=== PATIENT | female | born 1995 | race Caucasian/White ===

== ENCOUNTER 2016-08-06 22:46 | Emergency (ER) | payer OTHER ==
[~2016-08-06] VITALS: Ht 170.2 cm; Wt 123.8 kg
[2016-08-06 22:47] VITALS: TEMP 37.1; Ht 170.2 cm; Wt 123.8 kg
[2016-08-06] MEDS ORDERED: ETONMIS VAGRING (23:25)
[2016-08-06] MEDS ORDERED: AMX875 PO (23:26)
[2016-08-06] MEDS ORDERED: IBUP-1050 PO (23:26)
[2016-08-06] MEDS ORDERED: ACET-1256 PO (23:26)
[2016-08-06] MEDS ORDERED: KETOROLAC TROMETHAMINE 30 MG/ML VIAL IV STA (23:40)
[2016-08-06] MEDS ORDERED: SODIUM CHLORIDE 0.9% 1000ML 1,000 ML IV STA ×2 (23:41)
[2016-08-06] MEDS ORDERED: DEXAMETHASONE SOD INJ 10 MG/ML VIAL IV ONE (23:45)
--- NOTE | 2016-08-06 23:56 | EMERGENCY ROOM VISIT NOTE ---
History Report prepared by Jitendra: Alexus Disla Under the Supervision of: Dr. Fatemeh Hassan D.O. First contact with patient: 23:06 Chief Complaint: SORETHROAT Stated Complaint: SWOLLEN THROAT, WHITE SPOTS, CAN'T SWALLOW History of Present Illness The patient is a 21 year old female who presents to the Emergency Room with complaints of a worsening sore throat for the past 2 days. Yesterday she developed pain down her neck and white spots in the back of her throat. She went to [place] this morning. She had a negative Strep A test and a negative mono test. She was prescribed amoxicillin. The patient took one dose of the antibiotic at 10am today. She states that her symptoms started worsening this afternoon. She is now unable to swallow any liquids or her own secretions and she is spitting them into a bucket. She feels thirsty, but has been unable to drink anything since this morning. She reports tenderness all the way down the front of her neck and pain into her ears. The patient rates her pain as a 9/10 in severity. She denies cough and any sick contacts. Source of History: patient Onset: 2 days ago Position: throat Symptom Intensity: 9/10 Quality: other (sore) Timing: worsening Modifying Factors (Worsening): drinking, other (swallowing) Associated Symptoms: + neck pain, No cough Review of Systems See HPI for pertinent positives & negatives. A total of 10 systems reviewed and were otherwise negative. Past Medical & Surgical Medical Problems: (1) No significant past medical history Family History Diabetes mellitus Hypertension Social History Smoking Status: Never Smoker Alcohol Use: occasionally Marital Status: single Housing Status: lives with roommate Occupation Status: [employer] student Current/Historical Medications Scheduled Amoxicillin (Amoxicillin), 875 MG PO BID Azithromycin (Zithromax), 500 MG PO DAILY Etonogestrel/Ethinyl Estradiol (Nuvaring), 1 EA VAGRING MONTHLY Scheduled PRN Acetaminophen (Tylenol), 1,000 MG PO Q4 PRN for Pain or Fever Ibuprofen (Advil), 400-600 MG PO Q6H PRN for Pain or Fever Allergies Coded Allergies: No Known Allergies (Unverified , 08/06/16) Physical Exam Vital Signs Date Time Temp Pulse Resp B/P Pulse Ox O2 Delivery O2 Flow Rate FiO2 08/07/16 04:59 71 16 117/64 99 08/07/16 04:57 81 16 120/67 99 Room Air 08/07/16 01:05 99 Room Air 08/07/16 00:45 84 16 117/67 98 Room Air 08/06/16 22:52 98 Room Air 08/06/16 22:47 37.1 118 18 172/106 98 Room Air Physical Exam HEENT: Head - normocephalic and atraumatic Pupils are equal, round, and reactive to light. Extraocular eye muscles are intact, and sclera are anicteric. TMs normal bilaterally. Nose - moist nasal mucosa without discharge. Mouth - moist buccal mucosa. Oropharynx is nonerythematous. There is tonsillar exudate, but no erythema or edema noted. Neck: Supple; no JVD, nuchal rigidity, cervical lymphadenopathy. Heart: Regular rate and rhythm. There is a normal S1 and S2 with no murmurs, clicks, or gallops appreciated. Lungs: Clear to auscultation bilaterally with no wheezes, rales, or rhonchi. Abdomen: Soft, completely nontender, nondistended, with good bowel sounds. There are no palpable pulsatile masses or hepatosplenomegaly. There is no guarding, rigidity, or rebound noted. Extremities: No evidence of cyanosis, clubbing, or edema. There are easily palpable peripheral pulses. Skin: warm and dry with good turgor and no rashes. Medical Decision & Procedures ER Provider Diagnostic Interpretation: Chest x-ray as interpreted by myself reveals no pulmonary infiltrates or consolidations. Radiology results as stated below per my review and the radiologist's interpretation: CT NECK: Driver tonsil enlargement and oropharyngeal and hypopharyngeal mucosal edema, greater towards the left, compatible with tonsillitis and pharyngitis. No evidence of retropharyngeal or peritonsillar abscess. Enlarged level II lymph nodes, measuring up to 1.4 cm in short axis on the right. Air-fluid level in right maxillary sinus. Radiologist: Jose A Hernandez MD Laboratory Results 08/07/16 00:05 Red Blood Count 4.37, Mean Corpuscular Volume 83.8, Mean Corpuscular Hemoglobin 28.8, Mean Corpuscular Hemoglobin Concent 34.4, Mean Platelet Volume 9.9, Neutrophils (%) (Auto) 89.7, Lymphocytes (%) (Auto) 3.7, Monocytes (%) (Auto) 6.2, Eosinophils (%) (Auto) 0.0, Basophils (%) (Auto) 0.0, Neutrophils # (Auto) 24.51, Lymphocytes # (Auto) 1.00, Monocytes # (Auto) 1.68, Eosinophils # (Auto) 0.00, Basophils # (Auto) 0.01 08/07/16 00:05 Test 08/07/16 00:05 08/07/16 01:14 08/07/16 01:30 White Blood Count 27.31 K/uL (4.8-10.8) Red Blood Count 4.37 M/uL (4.2-5.4) Hemoglobin 12.6 g/dL (12.0-16.0) Hematocrit 36.6 % (37-47) Mean Corpuscular Volume 83.8 fL (80-100) Mean Corpuscular Hemoglobin 28.8 pg (25-34) Mean Corpuscular Hemoglobin Concent 34.4 g/dl (32-36) Platelet Count 332 K/uL (130-400) Mean Platelet Volume 9.9 fL (7.4-10.4) Neutrophils (%) (Auto) 89.7 % Lymphocytes (%) (Auto) 3.7 % Monocytes (%) (Auto) 6.2 % Eosinophils (%) (Auto) 0.0 % Basophils (%) (Auto) 0.0 % Neutrophils # (Auto) 24.51 K/uL (1.4-6.5) Lymphocytes # (Auto) 1.00 K/uL (1.2-3.4) Monocytes # (Auto) 1.68 K/uL (0.11-0.59) Eosinophils # (Auto) 0.00 K/uL (0-0.5) Basophils # (Auto) 0.01 K/uL (0-0.2) RDW Standard Deviation 42.2 fL (36.4-46.3) RDW Coefficient of Variation 13.9 % (11.5-14.5) Immature Granulocyte % (Auto) 0.4 % Immature Granulocyte # (Auto) 0.11 K/uL (0.00-0.02) Hypersegmented Polys OCCASIONAL Anion Gap 9.0 mmol/L (3-11) Est Creatinine Clear Calc Drug Dose 120.5 ml/min Estimated GFR () 92.6 Estimated GFR (Non- 79.9 BUN/Creatinine Ratio 8.5 (10-20) Calcium Level 8.9 mg/dl (8.5-10.1) Monoscreen NEG (NEG) Bedside Lactic Acid Venous 0.91 mmol/L (0.90-1.70) Urine Color ORANGE Urine Appearance TURBID (CLEAR) Urine pH 5.0 (4.5-7.5) Urine Specific Cornish 1.039 (1.000-1.030) Urine Protein 2+ (NEG) Urine Glucose (UA) TRACE (NEG) Urine Ketones 1+ (NEG) Urine Occult Blood NEG (NEG) Urine Nitrite POS (NEG) Urine Bilirubin NEG (NEG) Urine Urobilinogen NEG (NEG) Urine Leukocyte Esterase SMALL (NEG) Urine WBC (Auto) >30 /hpf (0-5) Urine RBC (Auto) 0-4 /hpf (0-4) Urine Hyaline Casts (Auto) 0 /lpf (0-5) Urine Epithelial Cells (Auto) >30 /lpf (0-5) Urine Bacteria (Auto) 1+ (NEG) Urine Crystals AMORPHOUS SEDIMENT (NONE Urine Pathogenic Casts /lpf (0) Urine Yeast (Auto) (NONE PRSENT) Laboratory results per my review. Medications Administered Medications (Trade) Dose Ordered Sig/Ezra Route Start Time Stop Time Status Last Admin Dose Admin Ketorolac Tromethamine (Toradol Inj) 30 mg NOW STAT IV 08/06/16 23:40 08/06/16 23:42 DC 08/07/16 00:26 30 MG Dexamethasone Sodium Phosphate 10 mg 10 mg NOW ONCE IV 08/06/16 23:45 08/06/16 23:46 DC 08/07/16 00:26 10 MG Sodium Chloride 1,000 ml @ 999 mls/hr Q1H1M STAT IV 08/06/16 23:41 08/07/16 00:41 DC 08/07/16 00:25 999 MLS/HR Sodium Chloride (Nss 1000ml) 1,000 ml @ 250 mls/hr Q4H STAT IV 08/06/16 23:41 08/07/16 03:40 DC 08/07/16 00:26 250 MLS/HR Azithromycin (Zithromax Tab) 500 mg NOW STAT PO 08/07/16 04:33 08/07/16 04:35 DC 08/07/16 04:33 500 MG Procedure Medications Administered: Toradol 30 mg IV NSS 1000 ml @ 250 mls/hr IV NSS 1000 ml @ 999 mls/hr IV Decadron 10 mg IV Azithromycin 500 mg PO ED Course 2330: Past medical records reviewed. The patient was evaluated in room B9. A complete history and physical exam was performed. 2340: Toradol 30 mg IV 2341: NSS 1000 ml @ 250 mls/hr IV, NSS 1000 ml @ 999 mls/hr IV 2345: Decadron 10 mg IV 0044: I reassessed the patient at this time. She had just recently gotten her medications and has not yet had any improvement of her symptoms. The patient had a significant leukocytosis and a full septic protocol was performed. Chest x-ray was obtained and was unremarkable. 0100: I updated the patient and her mother on the results and treatment plan. The patient will go for CT scan of the soft tissues of the neck to rule out a retropharyngeal abscess. 0306: The patient is doing well and resting more comfortably. 0401: I reassessed the patient at this time. She is feeling better and resting comfortably. I discussed the results and treatment plan with the patient. I answered all pertaining questions that she had. She expressed understanding and verbalized agreement. The patient will be discharged home. 0433: Azithromycin 500 mg PO Medical Decision The patient is a 21 year old female who presents to the ED with a worsening sore throat. Differential diagnosis includes strep, mono, exudative tonsillitis , URI, peritonsillar abscess. Laboratory Interpretations: Lactic acid 0.9 White count 27.3 Stable H&H Potassium 3.3 Normal renal function Glucose 100 [place] is negative. This is a 21-year-old female patient with a worsening sore throat and difficulty swallowing. She presents to the emergency department and has a white blood cell count greater than 27,000. There is no evidence of peritonsillar abscess. Strep testing was negative. [place] testing was negative. CT scan of the neck revealed no obvious retropharyngeal abscess or peritonsillar abscess. There was evidence of tonsillar edema consistent with tonsillitis. I started the patient on Zithromax. She feels much better after receiving IV Toradol and steroids. She was able to drink clear liquids without difficulty. She was told to return to the emergency department should worsening symptoms. Otherwise she can follow-up with student health services. Impression Primary Impression: Exudative tonsillitis Scribe Attestation The scribe's documentation has been prepared under my direction and personally reviewed by me in its entirety. I confirm that the note above accurately reflects all work, treatment, procedures, and medical decision making performed by me. Departure Information Dispostion Home / Self-Care Prescriptions Azithromycin (Zithromax) 500 Mg Tab 500 MG PO DAILY, #6 TAB Prov: Fatemeh Hassan D.O. 08/07/16 Referrals No Doctor, Assigned (PCP) Forms HOME CARE DOCUMENTATION FORM, IMPORTANT VISIT INFORMATION Patient Instructions ED Tonsillitis, My [facility] Additional Instructions Rest Take plenty of clear liquids take a soft diet stop amoxil Zithromax - daily for a week Ibuprofen - 800mg every 6-8 hours with food for pain Follow up with student health services if you have continued problems
[2016-08-07 00:31] LABS: HEMATOCRIT 36.6 % (37-47); MEAN CELL VOLUME 83.8 fL (80-100); MEAN CORPUSCULAR HEMOGLOBIN 28.8 pg (25-34); MEAN CORPUSCULAR HGB CONC 34.4 g/dl (32-36); MEAN PLATELET VOLUME 9.9 fL (7.4-10.4); PLATELET COUNT 332 K/uL (130-400); RED BLOOD COUNT 4.37 M/uL (4.2-5.4); WHITE BLOOD COUNT 27.31 K/uL (4.8-10.8)
[2016-08-07 00:40] LABS: BUN/CREATININE RATIO 8.5 (10-20); CALCIUM 8.9 mg/dl (8.5-10.1); POTASSIUM 3.3 mmol/L (3.5-5.1)
[2016-08-07 01:05] VITALS: O2SAT 99
[2016-08-07 01:46] LABS: URINE APPEARANCE TURBID (CLEAR); URINE COLOR ORANGE; URINE EPITHELIAL CELL AUTO >30 /lpf (0-5); URINE NITRITE POS (NEG); URINE SPECIFIC GRAVITY 1.039 (1.000-1.030); UROBILINOGEN NEG (NEG); ZZUR CULT IF INDIC CLEAN CATCH YES
[2016-08-07 01:56] LABS: BASO ABS # 0.01 K/uL (0-0.2); COMPLETE YES; HYPERSEGMENTED POLYS OCCASIONAL; IG% 0.4 %; LYMPH % 3.7 %; MONO % 6.2 %; NEUT % 89.7 %
[2016-08-07 01:59] LABS: MANUAL MICROSCOPIC REQUIRED? NO; REVIEW REQ? YES
[2016-08-07 02:00] LABS: URINE BILIRUBIN NEG (NEG)
[2016-08-07] MEDS ORDERED: OPTIRAY 320 IV PRN (02:45)
[2016-08-07] MEDS ORDERED: AZIT500T26 PO (04:28)
[2016-08-07] MEDS ORDERED: AZITHROMYCIN 250 MG TAB PO STA (04:33)
[2016-08-07 04:59] VITALS: BP 117/64; PULSE 71; O2SAT 99
--- NOTE | 2016-08-07 07:01 | DIAGNOSTIC IMAGING REPORT ---
CHEST ONE VIEW PORTABLE CLINICAL HISTORY: Sepsis dyspnea COMPARISON STUDY: No previous studies for comparison. FINDINGS: The bones soft tissues and hemidiaphragms are normal. The cardiomediastinal silhouette is normal. The lungs are clear. The pulmonary vasculature is normal. IMPRESSION: Negative chest. Electronically signed by: Monty Gilbert M.D. 08/07/2016 7:00 AM Dictated Date/Time: 08/07/2016 7:00 AM
--- NOTE | 2016-08-07 08:02 | DIAGNOSTIC IMAGING REPORT ---
CT SCAN OF THE NECK WITH IV CONTRAST CLINICAL HISTORY: Sore throat. Dysphagia. COMPARISON STUDY: No priors. TECHNIQUE: Following the IV administration of 115 cc of Optiray 320, CT scan of the soft tissues of the neck was performed from the skull base to the upper chest. Images are reviewed in the axial, sagittal, and coronal planes. IV contrast was administered without complication. The examination is modestly degraded by motion artifact. CT DOSE: 514.91 mGycm FINDINGS: Pharynx: The tonsils appear mildly enlarged and hyperemic. The nasopharynx, oropharynx, and laryngeal pharynx are otherwise normal in appearance. The pharyngeal airway is widely patent. There is no evidence of mass lesion. The vocal cords are symmetric. The parapharyngeal fat is well maintained. The prevertebral/retropharyngeal soft tissues are within normal limits. The epiglottis is normal. Lymphadenopathy: Prominent cervical lymph nodes are likely on a reactive basis. Thyroid: Normal in size and attenuation. Salivary glands: The parotid and submandibular glands are within normal limits. Brain parenchyma: The visualized brain parenchyma at the skull base is normal in appearance. Vascular structures: The internal carotid arteries and the jugular veins are widely patent bilaterally. Skeletal structures: Imaged portions of the calvarium at the skull base are within normal limits. The cervical spine appears intact. Orbits: The bony orbits are intact. Orbital contents are within normal limits. Sinuses and mastoids: There is trace mucosal thickening within the maxillary antrum noting a small air-fluid level on the right. The remaining paranasal sinuses are clear. The mastoid air cells are well pneumatized. Lung apices: Visualized apical lung parenchyma is clear. IMPRESSION: 1. Findings are consistent with tonsillitis. There is no CT evidence of abscess. 2. Prominent cervical lymph nodes are likely on a reactive basis. Clinical correlation will be required. 3. There is a small air-fluid level in the right maxillary antrum. Electronically signed by: Loc Bender M.D. 08/07/2016 8:01 AM Dictated Date/Time: 08/07/2016 7:57 AM
--- NOTE | 2016-08-09 18:59 | EMERGENCY ROOM VISIT NOTE ---
ED Visit Note The lab contacted the emergency department this evening because of positive blood culture. One of 2 bottles is growing a gram-positive cocci. Record was reviewed. The patient had a tonsillopharyngitis with a white blood cell count of 27,000. She was placed on Zithromax. Charge nurse Ramu was notified to contact patient and have her return for a recheck.
--- NOTE | 2016-08-12 14:33 | Pharmacy Progress Note ---
ED Pharmacist Culture FollowUp Date of Service: Aug 12, 2016. The patient returned to the ER on 08/09 as requested. Per ER provider note from that visit: "The patient had an extensive workup on her prior visit. She had a significant leukocytosis. Blood work was performed at that time and cultures show only 1 of 2 bottles having gram-positive cocci. This seems to be most consistent with a contaminant as the patient has not been spiking fevers and the result was over 48 hours from when they were drawn. Further identification is pending. Repeat blood cultures were done." See full note for further details. Repeat blood cultures x2 from 08/09 visit with no growth to date (now > 48 hours after collection). ER will be notified by microbiology if these cultures show growth. Patient was sent home with a prescription for Augmentin. No further intervention required at this time.
== END 2016-08-07 04:59 | disposition home or self-care (01) ==
LOC: C.EDB 22:46
DX: J03.90 Acute tonsillitis, unspecified (principal); Z83.3 Family history of diabetes mellitus; Z82.49 Family history of ischemic heart disease and other diseases of the circulatory system

== ENCOUNTER 2016-08-09 19:52 | Emergency (ER) | payer OTHER ==
[~2016-08-09] VITALS: Ht 170.2 cm; Wt 124.6 kg
[~2016-08-09 19:52] MED LIST: ACET-1256 PO; AMX875 PO; AZIT500T26 PO; ETONMIS VAGRING; IBUP-1050 PO
[2016-08-09 19:57] VITALS: Ht 170.2 cm; Wt 124.6 kg
[2016-08-09] MEDS ORDERED: SODIUM CHLORIDE 0.9% 1000ML 2,000 ML IV STA (20:27)
[2016-08-09] MEDS ORDERED: PROMETHAZINE HCL INJ 12.5 MG in SODIUM CHLORIDE 0.9% 50ML 50 ML IV STA (20:27)
[2016-08-09] MEDS ORDERED: AMPICILLIN/SULBACTAM SOD INJ 3,000 MG in SODIUM CHLORIDE 0.9% 100ML 100 ML IV STA (20:31)
[2016-08-09 20:35] LABS: BASO % 0.3 %; BASO ABS # 0.04 K/uL (0-0.2); COMPLETE YES; EOS % 0.2 %; HEMATOCRIT 34.3 % (37-47); IG% 0.3 %; LYMPH % 27.8 %; LYMPH ABS # 3.66 K/uL (1.2-3.4); MEAN CELL VOLUME 84.5 fL (80-100); MEAN CORPUSCULAR HEMOGLOBIN 28.6 pg (25-34); MEAN CORPUSCULAR HGB CONC 33.8 g/dl (32-36); MEAN PLATELET VOLUME 9.7 fL (7.4-10.4); MONO % 6.7 %; NEUT % 64.7 %; PLATELET COUNT 352 K/uL (130-400); RED BLOOD COUNT 4.06 M/uL (4.2-5.4); WHITE BLOOD COUNT 13.15 K/uL (4.8-10.8)
[2016-08-09] MEDS ORDERED: DEXAMETHASONE SOD INJ 10 MG/ML VIAL IV ONE (20:45)
[2016-08-09] MEDS: HYDROmorphone INJ 0.5 MG/0.5 ML SYR IV PRN ×2 (20:53→23:35)
[2016-08-09 22:44] VITALS: TEMP 36.8
[2016-08-09] MEDS ORDERED: OXYCODONE IR HOME PACK PO ONE (23:30)
[2016-08-09] MEDS ORDERED: AMOXICIL/CLAVU 875MG HOME PACK PO ONE (23:30)
[2016-08-09 23:37] VITALS: BP 179/124; PULSE 73; O2SAT 99
[2016-08-10] MEDS ORDERED: AMOX875T PO (00:05)
[2016-08-10] MEDS ORDERED: OXYC1TAB3 PO (00:05)
[2016-08-10] MEDS ORDERED: PRED50TA PO (00:23)
--- NOTE | 2016-08-10 01:56 | EMERGENCY ROOM VISIT NOTE ---
History Report prepared by Jitendra: Manuel Mayo Under the Supervision of: Dr. Jett Muniz M.D. First contact with patient: 20:04 Chief Complaint: THROAT PAIN/INJURY Stated Complaint: TONSLLTIS, EXTREME THROAT SWELLING,EAR PAIN History of Present Illness The patient is a 21 year old female who presents to the Emergency Room with complaints of worsening throat pain that started a few days ago. The patient recently presented to the ED for similar symptoms 3 days ago and was told she had Tonsillitis. The patient was prescribed Azithromycin and has been taking her prescribed dose. She still has 3 more days to go. The patient presented to the ED tonight because her symptoms were worsening. She complains of increased swelling and increasing difficulty swallowing and worsening discomfort. She rates her discomfort as an 8.5 out of 10 in severity. She notes the discomfort fluctuates between both sides of her throat. Pt denies LOC, headache, fevers, chills, diaphoresis, visual changes, neck pain, chest pain, breathing difficulties, nausea, vomiting, abdominal pain, back pain, melena, hematochezia , urinary symptoms, numbness, weakness, rash, or other complaints. Source of History: patient Onset: the past few days Position: throat Symptom Intensity: 8.5/10 in severity Timing: worsening Associated Symptoms: + sorethroat (worsening throat discomfort) Note: Other associated symptoms: increased swelling and difficulty swallowing, Review of Systems See HPI for pertinent positives and negatives. A total of ten systems were reviewed and were otherwise negative. Past Medical & Surgical Medical Problems: (1) No significant past medical history Family History Diabetes mellitus Hypertension Social History Smoking Status: Never Smoker Alcohol Use: occasionally Marital Status: single Housing Status: lives with roommate Occupation Status: [employer] student Current/Historical Medications Scheduled Amoxicillin & Pot Clavulanate (Augmentin 875-125 mg), 875 MG PO BID Etonogestrel/Ethinyl Estradiol (Nuvaring), 1 EA VAGRING MONTHLY Prednisone (Prednisone), 50 MG PO DAILY Scheduled PRN Oxycodone Ir (Roxicodone Ir), 1-2 TAB PO Q4H PRN for Pain Allergies Coded Allergies: No Known Allergies (Unverified , 08/06/16) Physical Exam Vital Signs Date Time Temp Pulse Resp B/P Pulse Ox O2 Delivery O2 Flow Rate FiO2 08/09/16 23:37 73 18 179/124 99 Room Air 08/09/16 22:44 36.8 81 18 160/111 99 Room Air 08/09/16 20:58 37.3 81 18 185/120 97 Room Air 08/09/16 20:10 100 Room Air 08/09/16 19:57 36.8 81 20 171/111 100 Room Air Physical Exam GENERAL: Awake, alert, mildly ill appearing, no distress. Muffled voice. HEAD: Normocephalic, atraumatic. No edema. EYES: Normal conjunctiva. Sclera non-icteric. EARS: Right TM normal. Left TM normal. NOSE: Mild congestion. OROPHARYNX: Lips, tongue, and mucosa unremarkable. Mild exudate, uvula midline. NECK: Supple. No nuchal rigidity. FROM. Anterior adenopathy. Negative jolt accentuation test. RESPIRATORY: CTA bilaterally. No wheezes rales or rhonchi. CARDIAC: Borderline tachycardic rate, normal rhythm. ABDOMEN: Soft, non distended. No tenderness to palpation. NEURO: Normal sensorium. SKIN: No rash or jaundice noted Medical Decision & Procedures Laboratory Results 08/09/16 20:20 Red Blood Count 4.06, Mean Corpuscular Volume 84.5, Mean Corpuscular Hemoglobin 28.6, Mean Corpuscular Hemoglobin Concent 33.8, Mean Platelet Volume 9.7, Neutrophils (%) (Auto) 64.7, Lymphocytes (%) (Auto) 27.8, Monocytes (%) (Auto) 6.7, Eosinophils (%) (Auto) 0.2, Basophils (%) (Auto) 0.3, Neutrophils # (Auto) 8.51, Lymphocytes # (Auto) 3.66, Monocytes # (Auto) 0.88, Eosinophils # (Auto) 0.02, Basophils # (Auto) 0.04 Test 08/09/16 20:20 White Blood Count 13.15 K/uL (4.8-10.8) Red Blood Count 4.06 M/uL (4.2-5.4) Hemoglobin 11.6 g/dL (12.0-16.0) Hematocrit 34.3 % (37-47) Mean Corpuscular Volume 84.5 fL (80-100) Mean Corpuscular Hemoglobin 28.6 pg (25-34) Mean Corpuscular Hemoglobin Concent 33.8 g/dl (32-36) Platelet Count 352 K/uL (130-400) Mean Platelet Volume 9.7 fL (7.4-10.4) Neutrophils (%) (Auto) 64.7 % Lymphocytes (%) (Auto) 27.8 % Monocytes (%) (Auto) 6.7 % Eosinophils (%) (Auto) 0.2 % Basophils (%) (Auto) 0.3 % Neutrophils # (Auto) 8.51 K/uL (1.4-6.5) Lymphocytes # (Auto) 3.66 K/uL (1.2-3.4) Monocytes # (Auto) 0.88 K/uL (0.11-0.59) Eosinophils # (Auto) 0.02 K/uL (0-0.5) Basophils # (Auto) 0.04 K/uL (0-0.2) RDW Standard Deviation 43.4 fL (36.4-46.3) RDW Coefficient of Variation 14.0 % (11.5-14.5) Immature Granulocyte % (Auto) 0.3 % Immature Granulocyte # (Auto) 0.04 K/uL (0.00-0.02) Monoscreen NEG (NEG) Laboratory results reviewed by me. Medications Administered Medications (Trade) Dose Ordered Sig/Ezra Route Start Time Stop Time Status Last Admin Dose Admin Sodium Chloride (Nss 1000ml) 2,000 ml @ 999 mls/hr Q2H1M STAT IV 08/09/16 20:27 08/09/16 22:27 DC 08/09/16 20:52 999 MLS/HR Hydromorphone HCl 0.5 mg 0.5 mg Q15M PRN IV 08/09/16 20:30 08/10/16 00:54 DC 08/09/16 23:35 0.5 MG Promethazine HCl/ Sodium Chloride (Phenergan Inj/ Nss 50ml) 50.5 ml @ 204 mls/hr NOW STAT IV 08/09/16 20:27 08/09/16 20:41 DC 08/09/16 20:53 204 MLS/HR Dexamethasone Sodium Phosphate 10 mg 10 mg NOW ONCE IV 08/09/16 20:45 08/09/16 20:46 DC 08/09/16 20:56 10 MG Ampicillin Sodium/ Sulbactam Sodium/ Sodium Chloride (Unasyn Inj/Nss 100ml) 108 ml @ 200 mls/hr NOW STAT IV 08/09/16 20:31 08/09/16 21:03 DC 08/09/16 21:21 200 MLS/HR Amoxicillin/ Clavulanate Potassium (Augmentin 875MG Home Pack) 1 homepack UD ONCE PO 08/09/16 23:30 08/09/16 23:31 DC 08/09/16 23:35 1 HOMEPACK Oxycodone HCl (Roxicodone Immediate Rel 5MG Home Pack) 1 homepack UD ONCE PO 08/09/16 23:30 08/09/16 23:31 DC 08/09/16 23:35 1 HOMEPACK ED Course 2021: The patient was evaluated in room B5. A complete history and physical exam was performed. 2026: Ordered Promethazine HCl 12.5 mg/ NSS 50.5 ml @ 204 mls/hr IV, NSS 2000 ml @ 999 mls/hr iV. 2029: Ordered Dilaudid Inj 0.5 mg IV. 2030: Ordered Ampicillin Sodium/ Sulbactam Sodium 3000 mg/ NSS 108 mls/hr IV. 2044: Ordered Decadron Inj 10 mg IV. 0: Ordered Oxycodone HCl 1 homepack PO, Amoxicillin/ Clavulanate Potassium 1 homepack PO. 2344: I reevaluated the patient. Discussed results and discharge instructions: She verbalized understanding and agreement. The patient is ready for discharge. Medical Decision Prior records/ancillary studies reviewed. Triage Nursing notes reviewed and agree them. Additional history obtained from the family. The patient's history was concerning for a persistent sore throat and questionable blood culture abnormality. One of 2 bottles of the patient's blood culture done almost 72 hours ago is showing some growth of gram-positive cocci. Differential diagnosis: Etiologies such as mononucleosis, streptococcal pharyngitis, peritonsillar abscess, viral syndrome, retropharyngeal abscess, tonsillitis, otitis, pneumonia, bacteremia as well as others were entertained. ER treatment provided: The patient had an IV established. Normal saline 2 L bolus IV Decadron IV Dilaudid 0.5 mg IV Phenergan IV Unasyn On reassessment the patient felt much better. She still had a slight amount of pain IV Dilaudid 0.5 mg Diagnostics interpreted by me: The labs revealed a slight leukocytosis of 13,000. This is markedly better than the 27,000 from the other visit. [place] negative. Repeat blood cultures done. Imaging studies: Deferred The patient had an extensive workup on her prior visit. She had a significant leukocytosis. Blood work was performed at that time and cultures show only 1 of 2 bottles having gram-positive cocci. This seems to be most consistent with a contaminant as the patient has not been spiking fevers and the result was over 48 hours from when they were drawn. Further identification is pending. Repeat blood cultures were done. The patient was feeling better after the above treatment. I believe her main issue was pain control. On reassessment the patient was doing much better and I discussed different treatment options. The patient and her mother felt comfortable with conservative management and treatment as an outpatient. The patient was started on Augmentin. She was given oxycodone by prescription as well as a home pack. If she worsens in anyway I told the patient and her mother that she would have to come back and likely be admitted. If her culture show anything abnormal she may also require further treatment in the hospital.I gave my usual and customary discussion regarding this issue. By the evaluation outlined above emergent etiologies such as peritonsillar abscess, retropharyngeal abscess, otitis, pneumonia, meningitis, urinary tract infection, sepsis, bacteremia, as well as others were deemed relatively unlikely. The patient and mother were informed about the findings as listed above. All questions were answered and they were pleased with the treatment. Return instructions were outlined and the patient was discharged in stable condition. Outpatient prescription management: Augmentin Prednisone Oxycodone Referral: The patient was referred back to her primary care physician for follow-up in 1- 2 days for a recheck of the current condition. The chart was completed utilizing [employer] Speech voice recognition software. Grammatical errors, random word insertions, pronoun errors, and incomplete sentences are an occasional consequence of this system due to software limitations, ambient noise, and hardware issues. Any formal questions or concerns about the content, text, or information contained within the body of this dictation should be directly addressed to the physician for clarification. [place] Drug Monitoring Program Search Results: patient reviewed within database, no issues identified Impression Primary Impression: Tonsillopharyngitis Scribe Attestation The scribe's documentation has been prepared under my direction and personally reviewed by me in its entirety. I confirm that the note above accurately reflects all work, treatment, procedures, and medical decision making performed by me. Departure Information Dispostion Home / Self-Care Prescriptions Prednisone (Prednisone) 50 Mg Tab 50 MG PO DAILY for 4 Days, #4 TAB Prov: Jett Muniz MD 08/10/16 Oxycodone Ir (Roxicodone Ir) 5 Mg Tab 1-2 TAB PO Q4H Y for Pain, #8 TAB Prov: Jett Muniz MD 08/10/16 Amoxicillin & Pot Clavulanate (Augmentin 875-125 mg) 1 Tab Tab 875 MG PO BID for 7 Days, #14 TAB Prov: Jett Muniz MD 08/10/16 Referrals No Doctor, Assigned (PCP) Forms HOME CARE DOCUMENTATION FORM, IMPORTANT VISIT INFORMATION, WORK / SCHOOL INSTRUCTIONS Patient Instructions My [facility] Additional Instructions Prednisone 50 mg: Once daily until the prescription is finished. Amoxicillin Clavulanate (Augmentin) 875mg: Take one pill twice daily for 7 days for your infection. All antibiotics can cause diarrhea. If this occurs and you feel worse or it does not resolve in 1-2 days follow up with your doctor or return to the Emergency Department as this could be signs of serious underlying problems. Any medication can cause an allergic reaction, stop the pills immediately and return to the ER for rash, hives, breathing difficulties, or swelling. Acetaminophen(Tylenol) may be used for fever or pain. Use 1000mg every six hours as needed. Avoid using more than 4000mg in a 24 hour period. (AND/OR) Ibuprofen(Motrin, Advil) may be used for fever or pain. Use 600mg every six hours as needed. Take with food. Avoid using more than 2400mg in a 24 hour period. Do not use 2400mg per day for more than three consecutive days without physician direction. Prolonged inappropriate use can lead to stomach upset or ulcers. Oxycodone (OxyIR) 5mg: Take 1-2 pills every four hours as needed for breakthrough pain. Avoid alcohol, operating machinery or dangerous equipment, working on ladders or roofs, DRIVING, or situations where being under the influence may be dangerous. It is recommended to use a stool softener such as Colace, 100mg twice daily while taking this medication to avoid constipation. Saltwater gargles every 2-3 hours as needed for pain. Rest and drink plenty of fluids. Controlling your fever with Tylenol and Ibuprofen as above will make you feel better. Wash your hands after nose blowing, sneezing, or coughing. Most germs are spread through contact, therefore improper hygiene may result in your close contacts and loved ones becoming ill just like you. Return to the ER for severe headache, neck stiffness, inability to swallow, chest pain, difficulty breathing, fevers, vomiting, worsening of your condition , or as needed. Follow up with your primary physician in one to 2 days for a recheck of your current condition.
== END 2016-08-10 00:05 | disposition home or self-care (01) ==
LOC: C.EDB 19:53
DX: J02.9 Acute pharyngitis, unspecified (principal); Z83.3 Family history of diabetes mellitus; Z82.49 Family history of ischemic heart disease and other diseases of the circulatory system